=== PATIENT | male | born 2000 | race Caucasian/White ===

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

== ENCOUNTER 2020-11-02 19:42 | Emergency (ER) | payer OTHER ==
[~2020-11-02] VITALS: Ht 180.3 cm; Wt 125.8 kg
[~2020-11-02 19:42] MED LIST changes: +SSD CREAM 1% 5050 GM TOP
[2020-11-02 20:46] LABS: ABSOLUTE BASOPHILS 0.1 thou/uL (0.0-0.2); ABSOLUTE EOSINOPHILS 0.2 thou/uL (0.0-0.7); ABSOLUTE LYMPHOCYTES 3.4 thou/uL (0.8-5.3); ABSOLUTE MONOCYTES 0.7 thou/uL (0.0-1.2); ABSOLUTE NEUTROPHILS 4.5 thou/uL (1.6-8.1); BASOPHILS 0.7 %; EOSINOPHILS 2.4 %; HEMATOCRIT 43.3 % (42.0-52.0); HEMOGLOBIN 15.1 gm/dL (14.0-18.0); LYMPHOCYTES 38.8 %; MCH 30.6 pg (26.0-34.0); MCHC 34.9 g/dL (28.0-37.0); MCV 87.7 fL (80.0-100.0); MONOCYTES 7.4 %; NUCLEATED RBCS 0 /100WBC; PLATELET COUNT* 215 thou/uL (150-400); POLYS 50.7 %; RBC 4.94 mil/uL (4.50-6.00); RDW-CV 13.2 % (10.5-14.5); WBC 8.8 thou/uL (4.0-11.0)
[2020-11-02 20:54] LABS: CALCIUM 8.3 mg/dL (8.5-10.1); CREATININE 0.9 mg/dL (0.6-1.3); POTASSIUM 3.7 mmol/L (3.5-5.1)
[2020-11-02 20:59] LABS: ALBUMIN 4.3 g/dL (3.4-5.0); TOTAL BILIRUBIN 0.3 mg/dL (<0.1-1.0); TOTAL PROTEIN 7.6 g/dL (6.4-8.2)
[2020-11-02 22:00] VITALS: BP 118/85
--- NOTE | 2020-11-03 11:41 | EKG ---
[place] [address] ELECTROCARDIOGRAM REPORT Name: KELSEY RUBI JR Room: [facility]#: [id number] Admission: 11/02/20 Attend Phys: Discharge: 11/02/20 Date of : 89 Date of Service: 11/02/201950 Report #: [id number] THIS REPORT FOR: //name// [facility] ED Test Date: 2020-11-02 Test Time: 19:51:57 Pat Name: KELSEY RUBI Department: Room: Gender: Raveler: : 2000 Requested By: Cassie Pettit Order Number: [id number] MD: Jerman Kingston Measurements Intervals [place] Rate: 71 P: 71 IN: 198 QRS: 86 QRSD: 93 T: 38 QT: 365 QTc: 397 Interpretive Statements Sinus rhythm ST elevation suggests acute pericarditis No previous ECG available for comparison Electronically Signed On 11-03-2020 11:41:36 CDT by Jerman Kingston [email or web address] <ELECTRONICALLY SIGNED> By: Terrance Kingston MD, [facility] 11/03/20 114 50 50 Terrance Kingston MD, [facility] /EPI
== END 2020-11-02 22:01 | disposition home or self-care (01) ==
LOC: M.ERS 19:42
PROVIDERS: Emergency Medicine
DX: R07.89 Other chest pain (principal); Z20.822 Contact with and (suspected) exposure to COVID-19; J45.909 Unspecified asthma, uncomplicated